=== PATIENT | female | born 1950 | race African-American/Black ===

== ENCOUNTER 2017-06-17 21:27 | Inpatient (IN) | payer MEDICARE, OTHER ==
[~2017-06-17] VITALS: Ht 157.5 cm; Wt 68.0 kg
[~2017-06-17 21:27] MED LIST: ACET-2154 PO; AMLO10TA4 PO; BISA10SU12 RC; DEXT15DR6 EACHEYE; DOCU-141 PO; HYDR12.5 PO; MAGN400O6 PO; MULT1TAB11 PO; NA P133E RC
[2017-06-17] MEDS ORDERED: DIVA125C PO ×2 (22:50)
[2017-06-17] MEDS ORDERED: CRAN405C PO (22:50)
[2017-06-17] MEDS ORDERED: AMLO10TA4 PO (22:50)
[2017-06-17] MEDS ORDERED: MEMA10TA PO (22:50)
[2017-06-17] MEDS ORDERED: DONE10TA11 PO (22:50)
[2017-06-17] MEDS ORDERED: DOCU100C36 PO (22:50)
[2017-06-17] MEDS ORDERED: PANT40TA4 PO (22:50)
[2017-06-17] MEDS ORDERED: ATOR10TA PO (22:50)
[2017-06-17] MEDS ORDERED: ASPI81TA31 PO (22:50)
[2017-06-17] MEDS ORDERED: OXYB5TAB11 PO (22:50)
[2017-06-17] MEDS ORDERED: OLAN10TA3 PO (22:51)
[2017-06-17 23:20] LABS: CARBON DIOXIDE 31 mmol/L (21-32); CHLORIDE 106 mmol/L (98-107); CREATININE 0.9 mg/dL (0.6-1.3); GLUCOSE 97 mg/dL (74-106); POTASSIUM 3.5 mmol/L (3.5-5.1); UREA NITROGEN, BLOOD 24 mg/dL (7-18)
[2017-06-17 23:23] LABS: BASOPHILS % (AUTO) 0.7 % (0.0-2.0); EOSINOPHILS # (AUTO) 0.1 K/uL (0.0-0.7); EOSINOPHILS % (AUTO) 3.1 % (0.0-7.0); HEMATOCRIT 37.9 % (37-47); HEMOGLOBIN 12.3 G/DL (12.0-16.0); LYMPHOCYTES # (AUTO) 1.4 K/UL (0.8-4.8); LYMPHOCYTES % (AUTO) 30.1 % (20.5-51.5); MEAN CORPUSCULAR HEMOGLOBIN 28.5 UUG (27.0-31.0); MEAN CORPUSCULAR HGB CONC 33 g/dL (32.0-37.0); MEAN CORPUSCULAR VOLUME 87.7 FL (81.0-99.0); MONOCYTES # (AUTO) 0.5 K/UL (0.1-1.30); MONOCYTES % (AUTO) 10.1 % (0.0-11.0); NEUTROPHILS # (AUTO) 2.6 K/UL (1.8-8.9); PLATELET COUNT (AUTO) 190 K/UL (150-450); RED BLOOD CELL COUNT(AUTO) 4.32 MIL/UL (4.2-5.4); WHITE BLOOD COUNT (AUTO) 4.6 K/UL (4.0-11.2)
[2017-06-17 23:26] LABS: ALANINE AMINOTRANSFERASE 19 U/L (14-59); ALKALINE PHOSPHATASE 155 U/L (50-136); ASPARTATE AMINOTRANSFERASE 19 U/L (15-37); BILIRUBIN,DIRECT 0.1 mg/dL (0.0-0.2); BILIRUBIN,TOTAL 0.2 mg/dL (0.2-1.0); TOTAL PROTEIN, SERUM 7.8 g/dL (6.4-8.2)
[2017-06-17 23:33] LABS: ACETAMINOPHEN < 2.0 ug/mL (10-30)
[2017-06-17 23:34] LABS: THYROID STIMULATING HORMONE 1.636 mIU/mL (0.358-3.740)
[2017-06-17 23:35] LABS: ETHANOL < 3 MG/DL (0-0)
--- NOTE | 2017-06-18 00:39 | NUR ---
Pt. admitted to [facility], under care of Dr. Evans Belongs List completed
--- NOTE | 2017-06-18 00:40 | NUR ---
Admitted 66 year old female to [facility] on a 5150 hold due to DTO and DG. the hold started on 06.17.17 at 1900 and will end on 06.20.17 at 1900. Pt is from [facility] ([facility] She was BIB ambulance to [facility] ER where she was medically cleared for admission to MHU. Per hold, patient pulled down 2 residents, from their beds to the ground and their bed linens. Patient has poor insight. At time of admission, patient was uncooperative, but calm. She refused to answer any questions and refused to sign any of her admission papers. skin is warm dry and intact. Medications were reconcile with Marisa matthew and Dr. Evans. We will notify daughter of admission in the morning. will continue to monitor
[2017-06-18] MEDS ORDERED: MAGNESIUM HYDROXIDE 30 ML LIQUID UDC PO PRN ×2 (01:00→14:45)
[2017-06-18] MEDS ORDERED: ACETAMINOPHEN 325 MG TABLET PO PRN (01:00)
[2017-06-18] MEDS ORDERED: MAG HYDROX/AL HYDROX/SIMETH 30 ML LIQUID UDC PO PRN (01:00)
[2017-06-18 01:14] VITALS: BP 122/74
[2017-06-18 01:39] VITALS: BP 122/74
--- NOTE | 2017-06-18 06:36 | NUR ---
PATIENT SLEPT FOR APPROX 5 HOUR AFTER SHE WAS ADMITTED TO THE UNIT.
[2017-06-18 07:30] VITALS: BP 137/71
[2017-06-18] MEDS ORDERED: BISACODYL 10 MG SUPP.RECT RC PRN (14:45)
[2017-06-18] MEDS ORDERED: FLEET ENEMA 133 ML BOTTLE RC PRN (14:45)
[2017-06-18] MEDS: DOCUSATE SODIUM 100 MG CAPSULE PO SCH (17:52)
[2017-06-18] MEDS: DIVALPROEX SPRINKLE 125 MG CAP.SPRINK PO SCH ×2 (17:52→20:37)
[2017-06-18 20:01] VITALS: BP 133/75
[2017-06-18] MEDS: OXYBUTYNIN CHLORIDE 5 MG TABLET PO SCH (20:37)
[2017-06-18] MEDS: ATORVASTATIN 10 MG TABLET PO SCH (20:38)
[2017-06-18] MEDS: OLANZAPINE ZYDIS 5 MG TAB.RAPDIS PO SCH (20:38)
--- NOTE | 2017-06-19 06:46 | NUR ---
PATIENT SLEPT APPROX 7.45 HRS THROUGH THE NIGHT. NO AGGRESSIVE BX NOTED DURING THE SHIFT. PT CONTINUE ON 1:1 SUPERVISION FOR SAFETY.
[2017-06-19] MEDS: PANTOPRAZOLE SODIUM 40 MG TABLET.DR PO SCH (07:00)
[2017-06-19 07:30] VITALS: BP 125/74
[2017-06-19] MEDS: OXYBUTYNIN CHLORIDE 5 MG TABLET PO SCH ×2 (08:32→20:28)
[2017-06-19] MEDS: ASPIRIN 81 MG TAB.CHEW PO SCH (08:32)
[2017-06-19] MEDS: MULTIVIT, IRON, MIN NO. 8, FA TABLET PO SCH (08:32)
[2017-06-19] MEDS: DIVALPROEX SPRINKLE 125 MG CAP.SPRINK PO SCH ×3 (08:32→20:28)
[2017-06-19] MEDS: DOCUSATE SODIUM 100 MG CAPSULE PO SCH ×2 (08:32→16:45)
[2017-06-19] MEDS ORDERED: Medication Not On Formulary EA (Cranberry Extract (Cranberry) 405 MG) PO SCH (09:00)
[2017-06-19] MEDS ORDERED: Medication Not On Formulary EA (Multivitamins W-Minerals (Multivitamin With Minerals) 1 PO SCH (09:00)
[2017-06-19] MEDS: HYDROCHLOROTHIAZIDE 12.5 MG CAPSULE PO SCH (09:09)
[2017-06-19] MEDS: AMLODIPINE 10 MG TABLET PO SCH (09:09)
[2017-06-19 16:30] VITALS: BP 110/61
[2017-06-19 20:00] VITALS: BP 130/64
[2017-06-19] MEDS: OLANZAPINE ZYDIS 5 MG TAB.RAPDIS PO SCH (20:28)
[2017-06-19] MEDS: ATORVASTATIN 10 MG TABLET PO SCH (20:28)
--- NOTE | 2017-06-20 05:13 | NUR ---
MARK AND RN ATTEMPTED TO OBTAIN URINE FROM Pt TWICE DURING SHIFT. HAT WAS PLACED IN THE TOILET AND Pt TAKEN TO BATHROOM TO URINATE. BOTH TIMES Pt WAS TOO DISORGANIZED AND CONFUSED TO UNDERSTAND HOW TO USE THE BATHROOM. Pt STATED, "WHO MAKES THE URINE?". DIAPER WAS THEN PLACED ON Pt AND ANOTHER ATTEMPT WILL BE MADE BEFORE END OF SHIFT.
[2017-06-20] MEDS: PANTOPRAZOLE SODIUM 40 MG TABLET.DR PO SCH (06:20)
[2017-06-20 07:30] VITALS: BP 119/80
[2017-06-20] MEDS: ASPIRIN 81 MG TAB.CHEW PO SCH (08:58)
[2017-06-20] MEDS: DOCUSATE SODIUM 100 MG CAPSULE PO SCH ×2 (08:58→17:20)
[2017-06-20] MEDS: HYDROCHLOROTHIAZIDE 12.5 MG CAPSULE PO SCH (08:59)
[2017-06-20] MEDS: DIVALPROEX SPRINKLE 125 MG CAP.SPRINK PO SCH ×3 (08:59→20:00)
[2017-06-20] MEDS: OXYBUTYNIN CHLORIDE 5 MG TABLET PO SCH ×2 (08:59→20:00)
[2017-06-20] MEDS: AMLODIPINE 10 MG TABLET PO SCH (08:59)
[2017-06-20] MEDS: MULTIVIT, IRON, MIN NO. 8, FA TABLET PO SCH (09:00)
--- NOTE | 2017-06-20 12:01 | NUR ---
Firearms Reporting: JACKIE completed and submitted [employer] Firearms Report on 06/20/17.
--- NOTE | 2017-06-20 15:42 | NUR ---
Initial DC Instructions: Pt currently resides at [facility] [[address] [place] [address]; ). SW will speak to pt's dtrTosha ([phone]) to discuss DC planning. Spoke with Iris at [facility] who stated that pt is on a 7 day bed-hold. SW will speak with pt, family, and MD regarding appropriate DC plans. SW will form a safe and proper discharge.
[2017-06-20 16:28] VITALS: BP 158/63
--- NOTE | 2017-06-20 18:26 | NUR ---
PATIENT REMAINS ON 1 TO 1 SITTER ,CONFUSED AND DISORIENTED WOUNDING AROUND.
[2017-06-20 20:00] VITALS: BP 107/47
[2017-06-20] MEDS: OLANZAPINE ZYDIS 5 MG TAB.RAPDIS PO SCH (20:00)
[2017-06-20] MEDS: ATORVASTATIN 10 MG TABLET PO SCH (20:00)
--- NOTE | 2017-06-20 22:00 | NUR ---
received to care, pleasant but confused, no self disclosure, wandering intermittently about the unit. 1;1 sitter remains at side, for safety. compliant with medications and staff direction. as of 2199, she remains in bed, but paces the hallway intermittently. remains cooperative. easy to redirect. will continue to monitor closely.
[2017-06-21] MEDS: PANTOPRAZOLE SODIUM 40 MG TABLET.DR PO SCH (06:47)
[2017-06-21 07:30] VITALS: BP 171/85
--- NOTE | 2017-06-21 12:11 | NUR ---
0730 Patient in bed sound asleep arousable when name called and touch. 0900 Patient still sleeping with s/s of acute respiratory distress. 1210 patient wake up and eating her meal. Morning meds will be offered to patient.
[2017-06-21 12:13] VITALS: BP 125/73
[2017-06-21] MEDS: HYDROCHLOROTHIAZIDE 12.5 MG CAPSULE PO SCH (12:15)
[2017-06-21] MEDS: AMLODIPINE 10 MG TABLET PO SCH (12:15)
[2017-06-21] MEDS: OXYBUTYNIN CHLORIDE 5 MG TABLET PO SCH ×2 (12:15→20:56)
[2017-06-21] MEDS: MULTIVIT, IRON, MIN NO. 8, FA TABLET PO SCH (12:15)
[2017-06-21] MEDS: DOCUSATE SODIUM 100 MG CAPSULE PO SCH ×2 (12:16→16:54)
[2017-06-21] MEDS: DIVALPROEX SPRINKLE 125 MG CAP.SPRINK PO SCH ×3 (12:16→20:56)
[2017-06-21] MEDS: ASPIRIN 81 MG TAB.CHEW PO SCH (12:16)
--- NOTE | 2017-06-21 13:21 | NUR ---
DC Planning: SW spoke to Iris at [facility] [phone]] who stated that pt is on a 7-day bed hold until 06/24/17. Contacted the following SNFs for placement: [facility] [phone]): Faxed Inquiry, Spoke to [facility], unable to accept pt at this time [facility] [phone]): Spoke to [facility], no female beds available. SW will follow-up. [facility] ): Left voicemail. Awaiting follow-up to fax inquiry [facility] [phone]): No long-term beds available at this time. [facility] ([phone]): Faxed Inquiry, Spoke to , awaiting response. [facility] ): Faxed Inquiry, Spoke to [place], awaiting response [facility] ): Faxed Inquiry, Spoke to [place], awaiting response. Spoke with pt's dtr, Tosha ([phone]) who is agreeable with finding other placement if [facility] bed hold expires. Plan: SW will continue to follow-up with SNFs regarding placement for pt.
[2017-06-21 16:54] VITALS: BP 130/71
[2017-06-21 19:58] VITALS: BP 131/67
[2017-06-21] MEDS: ATORVASTATIN 10 MG TABLET PO SCH (20:56)
[2017-06-21] MEDS: OLANZAPINE ZYDIS 5 MG TAB.RAPDIS PO SCH (20:56)
--- NOTE | 2017-06-21 22:00 | NUR ---
received to care, ambulating about the unit, 1:1 sitter at her side, at all times. initially refused her medications, but did eventually take them, with much encouragement. currently in her bed. appears to be falling asleep. no distress noted. will continue to monitor closely.
[2017-06-21 22:50] LABS: *BILIRUBIN,URIN NEGATIVE (NEGATIVE); *BLOOD, URINE 2+ (NEGATIVE); *CLARITY,URINE CLOUDY (CLEAR); *COLOR,URINE YELLOW (YELLOW); *KETONES,URINE TRACE (NEGATIVE); *PROTEIN,URINE NEGATIVE (NEGATIVE); *UROBILINOGEN,URINE 0.2 E.U./dl (NORMAL); LEUKOCYTE ESTERASE ,URINE 3+ (NEGATIVE); NITRITE, URINE POSITIVE (NEGATIVE); UGLUCOSE NEGATIVE (NEGATIVE)
[2017-06-21 23:15] LABS: BACTERIA,URINE MANY /HPF (NONE SEEN); RBC,URINE 20-50 /HPF (0-3); SQUAMOUS EPITHELIAL CELL,UR FEW /HPF (NONE SEEN); WBC,URINE TNTC /HPF (0-3)
[2017-06-22 08:00] VITALS: BP 135/69
[2017-06-22] MEDS: MULTIVIT, IRON, MIN NO. 8, FA TABLET PO SCH (08:37)
[2017-06-22] MEDS: DOCUSATE SODIUM 100 MG CAPSULE PO SCH ×2 (08:37→17:04)
[2017-06-22] MEDS: HYDROCHLOROTHIAZIDE 12.5 MG CAPSULE PO SCH (08:37)
[2017-06-22] MEDS: ASPIRIN 81 MG TAB.CHEW PO SCH (08:38)
[2017-06-22] MEDS: AMLODIPINE 10 MG TABLET PO SCH (08:38)
[2017-06-22] MEDS: DIVALPROEX SPRINKLE 125 MG CAP.SPRINK PO SCH ×3 (08:38→20:10)
[2017-06-22] MEDS: PANTOPRAZOLE SODIUM 40 MG TABLET.DR PO SCH (08:41)
[2017-06-22] MEDS: OXYBUTYNIN CHLORIDE 5 MG TABLET PO SCH ×2 (08:57→20:10)
[2017-06-22 15:59] VITALS: BP 119/69
[2017-06-22] MEDS: ATORVASTATIN 10 MG TABLET PO SCH (20:10)
[2017-06-22] MEDS: SULFAMETH/TRIMETH 800/160 MG TABLET PO SCH (20:10)
[2017-06-22] MEDS: OLANZAPINE ZYDIS 5 MG TAB.RAPDIS PO SCH (20:11)
[2017-06-22 21:18] VITALS: BP 129/59
--- NOTE | 2017-06-22 22:00 | NUR ---
received to care, ambulating about the unit. 1;1 sitter at her side, for safety. compliant with medications and staff direction. as of 2199, she appears to be asleep. no distress noted. will continue to monitor closely.
--- NOTE | 2017-06-23 06:00 | NUR ---
slept 8 hours. continues to sleep. sitter remains at side. no distress noted.
[2017-06-23] MEDS: PANTOPRAZOLE SODIUM 40 MG TABLET.DR PO SCH (07:02)
[2017-06-23 07:30] VITALS: BP 150/72
[2017-06-23] MEDS: AMLODIPINE 10 MG TABLET PO SCH (09:20)
[2017-06-23] MEDS: MULTIVIT, IRON, MIN NO. 8, FA TABLET PO SCH (09:20)
[2017-06-23] MEDS: SULFAMETH/TRIMETH 800/160 MG TABLET PO SCH ×2 (09:20→20:08)
[2017-06-23] MEDS: HYDROCHLOROTHIAZIDE 12.5 MG CAPSULE PO SCH (09:20)
[2017-06-23] MEDS: DOCUSATE SODIUM 100 MG CAPSULE PO SCH ×2 (09:20→16:37)
[2017-06-23] MEDS: DIVALPROEX SPRINKLE 125 MG CAP.SPRINK PO SCH ×3 (09:20→20:08)
[2017-06-23] MEDS: ASPIRIN 81 MG TAB.CHEW PO SCH (09:21)
[2017-06-23] MEDS: OXYBUTYNIN CHLORIDE 5 MG TABLET PO SCH ×2 (09:21→20:08)
[2017-06-23 15:09] VITALS: BP 109/48
[2017-06-23 20:00] VITALS: BP 126/54
[2017-06-23] MEDS: ATORVASTATIN 10 MG TABLET PO SCH (20:08)
[2017-06-23] MEDS: OLANZAPINE ZYDIS 5 MG TAB.RAPDIS PO SCH (20:09)
[2017-06-24] MEDS: PANTOPRAZOLE SODIUM 40 MG TABLET.DR PO SCH (06:29)
--- NOTE | 2017-06-24 06:44 | NUR ---
gps: remain calm and cooperative with medication in am. noncompliant with am care.assisted with bed bath.slept 08:30 hrs through the night.continue monitoring for safety.
[2017-06-24 07:30] VITALS: BP 135/75
[2017-06-24] MEDS: ASPIRIN 81 MG TAB.CHEW PO SCH (08:39)
[2017-06-24] MEDS: DOCUSATE SODIUM 100 MG CAPSULE PO SCH ×2 (08:39→16:23)
[2017-06-24] MEDS: MULTIVIT, IRON, MIN NO. 8, FA TABLET PO SCH (08:40)
[2017-06-24] MEDS: OXYBUTYNIN CHLORIDE 5 MG TABLET PO SCH ×2 (08:40→20:09)
[2017-06-24] MEDS: HYDROCHLOROTHIAZIDE 12.5 MG CAPSULE PO SCH (08:40)
[2017-06-24] MEDS: AMLODIPINE 10 MG TABLET PO SCH (08:40)
[2017-06-24] MEDS: DIVALPROEX SPRINKLE 125 MG CAP.SPRINK PO SCH ×3 (08:40→20:09)
[2017-06-24] MEDS: SULFAMETH/TRIMETH 800/160 MG TABLET PO SCH ×2 (08:40→20:08)
[2017-06-24 15:00] VITALS: BP 132/70
[2017-06-24 19:58] VITALS: BP 128/68
[2017-06-24] MEDS: ATORVASTATIN 10 MG TABLET PO SCH (20:09)
[2017-06-24] MEDS: OLANZAPINE ZYDIS 5 MG TAB.RAPDIS PO SCH (20:09)
--- NOTE | 2017-06-24 20:41 | NUR ---
Received patient sitting in a leilani chair. She is A/O x1 (name only) confused, she is calm and cooperative WITH MEDICATION REGIMENT at this time.
[2017-06-25] MEDS: PANTOPRAZOLE SODIUM 40 MG TABLET.DR PO SCH (06:54)
[2017-06-25 07:30] VITALS: BP 135/74
[2017-06-25] MEDS: OXYBUTYNIN CHLORIDE 5 MG TABLET PO SCH ×2 (12:25→19:40)
[2017-06-25] MEDS: MULTIVIT, IRON, MIN NO. 8, FA TABLET PO SCH (12:25)
[2017-06-25] MEDS: HYDROCHLOROTHIAZIDE 12.5 MG CAPSULE PO SCH (12:26)
[2017-06-25] MEDS: DIVALPROEX SPRINKLE 125 MG CAP.SPRINK PO SCH ×3 (12:27→19:39)
[2017-06-25] MEDS: DOCUSATE SODIUM 100 MG CAPSULE PO SCH ×2 (12:27→16:26)
[2017-06-25] MEDS: ASPIRIN 81 MG TAB.CHEW PO SCH (12:28)
[2017-06-25] MEDS: AMLODIPINE 10 MG TABLET PO SCH (12:28)
[2017-06-25] MEDS: NITROFURANTOIN/NITROFURAN MAC 100 MG CAPSULE PO SCH ×2 (12:34→19:38)
[2017-06-25 15:33] VITALS: BP 121/53
[2017-06-25] MEDS: OLANZAPINE ZYDIS 5 MG TAB.RAPDIS PO SCH (19:40)
[2017-06-25] MEDS: ATORVASTATIN 10 MG TABLET PO SCH (19:40)
[2017-06-25 19:42] VITALS: BP 122/72
[2017-06-26 07:30] VITALS: BP 128/71
[2017-06-26] MEDS: OXYBUTYNIN CHLORIDE 5 MG TABLET PO SCH ×2 (09:42→20:03)
[2017-06-26] MEDS: ASPIRIN 81 MG TAB.CHEW PO SCH (09:42)
[2017-06-26] MEDS: MULTIVIT, IRON, MIN NO. 8, FA TABLET PO SCH (09:42)
[2017-06-26] MEDS: HYDROCHLOROTHIAZIDE 12.5 MG CAPSULE PO SCH (09:42)
[2017-06-26] MEDS: DOCUSATE SODIUM 100 MG CAPSULE PO SCH ×2 (09:42→17:35)
[2017-06-26] MEDS: DIVALPROEX SPRINKLE 125 MG CAP.SPRINK PO SCH ×3 (09:42→20:03)
[2017-06-26] MEDS: NITROFURANTOIN/NITROFURAN MAC 100 MG CAPSULE PO SCH ×2 (09:42→20:03)
[2017-06-26] MEDS: AMLODIPINE 10 MG TABLET PO SCH (09:43)
[2017-06-26] MEDS: PANTOPRAZOLE SODIUM 40 MG TABLET.DR PO SCH (09:45)
[2017-06-26 15:32] VITALS: BP 105/65
[2017-06-26 20:01] VITALS: BP 100/58
[2017-06-26] MEDS: ATORVASTATIN 10 MG TABLET PO SCH (20:03)
[2017-06-26] MEDS: OLANZAPINE ZYDIS 5 MG TAB.RAPDIS PO SCH (20:03)
[2017-06-27] MEDS: PANTOPRAZOLE SODIUM 40 MG TABLET.DR PO SCH (06:22)
[2017-06-27 07:30] VITALS: BP 146/67
--- NOTE | 2017-06-27 08:54 | NUR ---
DC Note: Patient will be discharged [facility] [[address] [place] [address]; ] via ambulance at 1pm. Spoke with CJ at the facility who states they are ready to accept the patient today. Spoke with pt's daughter, Tosha ([phone]) who is aware and agreeable with discharge plans. Patient is aware and agreeable with discharge plans. Pt will follow-up at the facility with Dr. Cunningham ([place] [place]) and Dr. Evans (Psychiatrist).
[2017-06-27] MEDS: ASPIRIN 81 MG TAB.CHEW PO SCH (09:40)
[2017-06-27] MEDS: MULTIVIT, IRON, MIN NO. 8, FA TABLET PO SCH (09:40)
[2017-06-27] MEDS: DIVALPROEX SPRINKLE 125 MG CAP.SPRINK PO SCH ×2 (09:40→16:54)
[2017-06-27] MEDS: NITROFURANTOIN/NITROFURAN MAC 100 MG CAPSULE PO SCH (09:40)
[2017-06-27] MEDS: DOCUSATE SODIUM 100 MG CAPSULE PO SCH ×2 (09:40→16:54)
[2017-06-27] MEDS: AMLODIPINE 10 MG TABLET PO SCH (09:40)
[2017-06-27] MEDS: HYDROCHLOROTHIAZIDE 12.5 MG CAPSULE PO SCH (09:40)
[2017-06-27] MEDS: OXYBUTYNIN CHLORIDE 5 MG TABLET PO SCH (09:40)
[2017-06-27 16:14] VITALS: BP 114/74
--- NOTE | 2017-06-27 18:05 | NUR ---
[facility]: Nursing Notes: Discharge Notes: Patient is awake and responding to her name, confused, disorganized, compliant with her medications, needs prompting to be compliant with nursing care, A/Ox1, denies any SI/HI, denies any AH/VH, denies any pain or discomfort, denies any SOB, discharge to [facility] at [address] [place] [address] , report given to Yodit RN [employer] supervisor, transported to facility via ambulance. S.W. spoke with pt's daughter, Tosha ([phone]) who is aware and agreeable with discharge plans. Patient is aware and agreeable with discharge plans. Pt will follow-up at the facility with Dr. Cunningham ([employer]) and Dr. Evans (Psychiatrist) for aftercare.
== END 2017-06-27 18:00 | DRG 885 ==
LOC: ER 21:28 → GPS 23:30
PROVIDERS: ADMIT Psychiatry & Neurology Psychiatry; ATTEND Internal Medicine
DX: F25.0 Schizoaffective disorder, bipolar type (principal); B95.2 Enterococcus as the cause of diseases classified elsewhere; F03.90 Unspecified dementia, unspecified severity, without behavioral disturbance, psychotic disturbance, mood disturbance, and anxiety; N39.0 Urinary tract infection, site not specified; Z79.899 Other long term (current) drug therapy; Z79.82 Long term (current) use of aspirin; I10 Essential (primary) hypertension; B96.20 Unspecified Escherichia coli [E. coli] as the cause of diseases classified elsewhere; K59.00 Constipation, unspecified; D72.819 Decreased white blood cell count, unspecified
CPT/HCPCS: 36415; 80164; 84443; 85025; 87077; 87086; A4663; G0480; G0480-TC